=== PATIENT | female | born 1990 | race Caucasian/White ===

== ENCOUNTER 2020-09-03 18:46 | Emergency (ER) | payer SELFPAY ==
[2020-09-03 19:22] LABS: Bilirubin Negative (Negative); Blood, Urine Moderate (Negative); Clarity Cloudy (Clear); Glucose, Urine (Dipstick) Negative (Negative); Ketone, Urine Negative (Negative); Leukocyte Moderate (Negative); Nitrite Positive (Negative); Protein, Urine (Dipstick) 100 mg/dL (Neg-Trace); Specific Gravity, Urine 1.015 (1.005-1.030); pH, Urine 6.5 (5.0-9.0)
[2020-09-03 19:33] LABS: Squamous Epithelial None Seen HPF (0-3); WBC/HPF Greater Than 50 HPF (0-3)
[2020-09-03 19:34] LABS: Bacteria/HPF 1+ HPF (None Seen)
[2020-09-03] MEDS ORDERED: Sodium Chloride 0.9% 1,000 ML ONE ×2 (20:08→21:08)
[2020-09-03] MEDS ORDERED: Ciprofloxacin Lactate/D5W 400 mg/200 ml Premix ONE (20:08)
[2020-09-03] MEDS ORDERED: Acetaminophen 325 MG TAB ONE (20:08)
[2020-09-03 20:10] LABS: #Basophils 0.1 thou/uL (0.0-0.2); #Lymphocytes 1.5 thou/uL (1.20-3.40); #Monocytes 0.7 thou/uL (0.11-0.59); #Neutrophils 7.5 thou/uL (1.40-6.50); %Basophils 0.8 % (0.0-1.0); %Eosinophils 0.3 % (0.0-10.0); %Lymphocytes 15.3 % (21.0-51.0); %Monocytes 7.2 % (0.0-10.0); %Neutrophils 76.4 % (42.0-75.0); Hemoglobin 10.9 g/dL (12.0-16.0); Mean Corpuscular HGB CONC 31.9 g/dL (32.0-36.0); Mean Corpuscular Hemoglobin 25.6 pg (27.0-31.0); Mean Corpuscular Volume 80.5 fL (78.0-98.0); Mean Platelet Volume 7.1 fL (7.4-10.4); Platelet Count 309 thou/uL (130-400); RBC Distribution Width 12.7 % (11.5-14.5); Red Blood Cell (RBC) Count 4.25 mill/uL (4.20-5.40); White Blood Cell (WBC) Count 9.8 thou/uL (4.8-10.8)
[2020-09-03 20:25] LABS: ALT (SGPT) 15 U/L (8-55); AST (SGOT) 11 U/L (5-34); Albumin 3.8 g/dL (3.5-5.0); Alkaline Phosphatase 70 U/L (40-110); Anion Gap 14 mmol/L (10-20); BUN (Urea Nitrogen) 8 mg/dL (7.0-18.7); Bilirubin, Total 0.4 mg/dL (0.2-1.2); Calc. Creatinine Clearance 0 mL/min (70-130); Calcium 8.3 mg/dL (7.8-10.44); Carbon Dioxide 22 mmol/L (22-29); Chloride 107 mmol/L (98-107); Globulin 2.9 g/dL (2.4-3.5); Glucose 88 mg/dL (70-105); Lipase 9 U/L (8-78); Potassium 3.8 mmol/L (3.5-5.1); Protein, Total 6.7 g/dL (6.0-8.3); Sodium 139 mmol/L (136-145)
== END 2020-09-03 22:45 | disposition home or self-care (01) ==
LOC: MADERS 18:46
DX: N10 Acute pyelonephritis (principal); F17.210 Nicotine dependence, cigarettes, uncomplicated; G47.00 Insomnia, unspecified
CPT/HCPCS: 36415; 80053; 81003; 81015; 83605; 83690; 85025; 87040; 87077; 87086; 87186; 96365; J0744; J7050